=== PATIENT | female | born 1980 | race Two or more races ===

== ENCOUNTER 2024-07-10 11:14 | Outpatient (CLI) | payer OTHER ==
[2024-07-10] MEDS ORDERED: KETO10TA2 PO (13:35)
[2024-07-10] MEDS ORDERED: ANASTROZOLE1 MG PO (13:41)
== END 2024-07-10 11:26 | disposition home or self-care (01) ==
LOC: RAD 11:14
PROVIDERS: ATTEND Internal Medicine
DX: Z01.818 Encounter for other preprocedural examination (principal)

== ENCOUNTER 2024-07-10 12:34 | Inpatient (IN) | payer OTHER ==
[~2024-07-10] VITALS: Ht 157.5 cm; Wt 66.7 kg
[2024-07-10] MEDS ORDERED: KETO10TA2 PO (13:35)
[2024-07-10 13:36] VITALS: BP 132/82
[2024-07-10] MEDS ORDERED: ANASTROZOLE1 MG PO (13:41)
[2024-07-26] MEDS ORDERED: POVIDONE-IODINE SCRUB 118 ML BOTT TOP ONE (13:15)
[2024-07-26] MEDS ORDERED: CEFAZOLIN SODIUM 1,000 MG VIAL IV ONE (13:15)
[2024-07-26] MEDS ORDERED: MORPHINE SULFATE 4 MG/ML VIAL IV ONE (15:00)
[2024-07-26] MEDS ORDERED: ONDANSETRON HCL 2 MG/ML VIAL ONE (15:13)
[2024-07-26] MEDS ORDERED: RINGERS SOLUTION,LACTATED 1,000 ML IV SCH (15:45)
[2024-07-26 16:14] VITALS: BP 132/82
[2024-07-26] MEDS ORDERED: PROMETHAZINE HCL 50 MG/ML AMPUL IM SCH (18:00)
[2024-07-26] MEDS ORDERED: MEPERIDINE HCL/PF 25 MG/ML VIAL IM SCH (18:00)
[2024-07-26 20:52] VITALS: BP 118/75
[2024-07-26] MEDS ORDERED: CEFAZOLIN SODIUM 1,000 MG VIAL IV SCH (21:00)
[2024-07-26] MEDS ORDERED: ONDANSETRON HCL 2 MG/ML VIAL IV SCH (21:00)
[2024-07-27] VITALS: BP 100/60
[2024-07-27] MEDS ORDERED: OxyCODONE HCL/APAP UD (PERCOCET) PO SCH (06:00)
[2024-07-27 07:41] VITALS: BP 133/84
[2024-07-27] MEDS ORDERED: SIMETHICONE 125 MG CAPSULE PO SCH (09:00)
[2024-07-27 15:00] VITALS: BP 128/83
[2024-07-28 01:34] VITALS: BP 113/76
[2024-07-28 08:17] VITALS: BP 109/72
== END 2024-07-28 12:42 | disposition home or self-care (01) | DRG 743 ==
LOC: OB/GYN 07-24 07:00 → O/R 07-26 06:27 → OB/GYN 07-26 14:50
PROVIDERS: ADMIT Obstetrics & Gynecology; ATTEND Obstetrics & Gynecology
PROC: 0UT70ZZ Resection of Bilateral Fallopian Tubes, Open Approach (ICD-10-PCS; 2024-07-26)
PROC: 0UT20ZZ Resection of Bilateral Ovaries, Open Approach (ICD-10-PCS; 2024-07-26)
PROC: 0UN10ZZ Release Left Ovary, Open Approach (ICD-10-PCS; 2024-07-26)
PROC: 0DNW0ZZ Release Peritoneum, Open Approach (ICD-10-PCS; 2024-07-26)
PROC: 0UT90ZZ Resection of Uterus, Open Approach (ICD-10-PCS; principal; 2024-07-26 07:00)
DX: N85.02 Endometrial intraepithelial neoplasia [EIN] (principal)